=== PATIENT | female | born 1975 | race Caucasian/White ===

== ENCOUNTER 2016-06-08 20:59 | Outpatient (CLI) | payer MEDICAID ==
[~2016-06-08] VITALS: Ht 162.6 cm; Wt 75.9 kg
[2016-06-08 21:28] VITALS: BP 108/71; PULSE 75; RESP 16; Ht 162.6 cm; Wt 75.9 kg
[2016-06-08] MEDS ORDERED: PRENAT PO (22:44)
--- NOTE | 2016-06-08 23:49 | QN ---
Documentation Comment 40-year-old with IUP at 26 weeks and 1 day with care that [facility] presents with complaint of feeling a bulge in the umbilical area. She denies any nausea, vomiting diarrhea constipation change in the bowel movement, leakage of fluid, vaginal bleeding or decreased movement or any other complaints. She is states that she did not feel these bulge Prior to and notice it with current . She denies any complications during her current . Physical examination: General appearance alert and oriented. Patient does not appear to be in any acute distress. Abdomen: Soft, gravid, fundal height consistent with gestational age. There is 1 x 1 cm umbilical hernia with no evidence of strangulation or incarceration noted. No evidence of acute abdomen no abdominal tenderness no rebound tenderness no guarding NST:Appropriate for gestational age No contraction on the monitor Patient does not have any OB complaints Assessment: IUP at 26 weeks and 1 day Bulging in the umbilicus area, exam consistent with umbilical hernia with no evidence of incarceration or strangulation Patient was reassured. Advised to use abdominal binder. If she has any tenderness pain in the area or inability to tolerate diet or nausea vomiting or painful area in the umbilicus in the area of hernia immediately go to emergency room otherwise she needs to be seen in the next week by her primary care physician for possible referral to general surgeon at this point since is asymptomatic She can continue by using the binder and above precaution and consider definitive treatment after . Patient verbalized understanding. labor precaution and kick counts and follow-up next week with her OB clinic discussed. Patient sounds understanding all above discussion. ARELI CISNEROS MD Jun 08, 2016 23:49
== END 2016-06-08 23:05 | disposition home or self-care (01) ==
LOC: L-D 20:59 → OBT 20:59
PROVIDERS: ATTEND Obstetrics & Gynecology Obstetrics
DX: O99.612 Diseases of the digestive system complicating pregnancy, second trimester (principal); K42.9 Umbilical hernia without obstruction or gangrene; O09.522 Supervision of elderly multigravida, second trimester; Z3A.26 26 weeks gestation of pregnancy
CPT/HCPCS: 59025; Z7500; G0463